=== PATIENT | female | born 1955 | race Caucasian/White ===

== ENCOUNTER → 2016-07-17 | Outpatient (CLI) | payer OTHER ==
--- NOTE | 2016-07-18 07:37 | MR ---
EXAMINATION TYPE: MR cervical spine wo/w con DATE OF EXAM: 07/17/2016 4:24 PM COMPARISON: NONE HISTORY: Neck pain, BUE radic, prev surgery x2 TECHNIQUE: Multiplanar, multisequence images of the cervical spine were acquired utilizing 20 mL intravenous Mul tiHance gadolinium contrast. Diffusion weighted imaging was performed. C2-C3: No evidence for degenerative disc disease. No disc bulge/herniation or protrusion. No Canal stenosis. Foramina are patent bilaterally. C3-C4: No significant disc bulge spinal canal stenosis or neural foraminal stenosis is present. C4-C5: There is a right paracentral endplate spur with moderate anterior thecal sac compression. Cord contact and mild cord deformity is present. No spinal canal stenosis present. Neural foramen are pat ent C5-C6: No significant residual disc is evident. No Canal stenosis. Foramina are patent bilaterally. C6-C7: Degenerative disc changes are present with loss of disc height. No Canal stenosis. Foramina a re patent bilaterally. C7-T1: There is a right paracentral disc herniation with moderate anterior thecal sac compression. Co rd contact is present. No cord deformity is evident. No spinal canal stenosis or neural foraminal clemente nosis is present T1-T2: There is a central disc herniation with moderate anterior thecal sac compression. Cord contact may be present. Minimal cord deformity is not excluded. No AP spinal canal stenosis present. Neural foramen are patent. There is straightening of the cervical spine. Anterior fusion is present C4-C6. This exam is compared to 05/03/2015. The disc bulging at C7-T1 appears diminished from prior. The T1-2 level however appears greater. Comparison is somewhat limited due to no axial images available on th e comparison. IMPRESSION: 1 status post anterior cervical fusion. 2. Appears to be an increase in size central disc herniation T1-T2 without cord contact. Some minimal cord deformity may be present. 2. C7-T1 disc herniation may be somewhat smaller than comparison. Cord contact is present.
== END | disposition home or self-care (01) ==
LOC: RADMRIMAIN 15:37
PROVIDERS: ATTEND Physician Assistant Medical
DX: M50.23 Other cervical disc displacement, cervicothoracic region (principal); Z98.1 Arthrodesis status
CPT/HCPCS: 72156; A9577

== ENCOUNTER → 2017-11-12 | Outpatient (CLI) | payer MEDICAID ==
--- NOTE | 2017-11-13 11:42 | MM ---
Reason for exam: screening (asymptomatic). Last mammogram was performed 2 years and 7 months ago. History: Patient is postmenopausal. Family history of premenopausal breast cancer in maternal aunt at age 38. Physical Findings: A clinical breast exam by your physician is recommended on an annual basis and results should be correlated with mammographic findings. MG 3D Screening Mammo W/Cad Bilateral CC and MLO view(s) were taken. Prior study comparison: April 26, 2015, bilateral MG screening mammo w CAD. April 20, 2014, bilateral MG screening mammo w CAD. There are scattered fibroglandular densities. No suspicious abnormality. No significant changes when compared with prior studies. ASSESSMENT: Negative, BI-RAD 1 RECOMMENDATION: Routine screening mammogram of both breasts in 1 year.
== END | disposition home or self-care (01) ==
LOC: RADMAMWWP 15:39
PROVIDERS: ATTEND Family Medicine
DX: Z12.31 Encounter for screening mammogram for malignant neoplasm of breast (principal)
CPT/HCPCS: 77063; 77067

== ENCOUNTER 2018-07-28 08:07 | Day surgery (SDC) | payer MEDICAID ==
[2018-07-24 11:10] VITALS: BMI 35.5
[~2018-07-28 08:07] MED LIST: HYDROmorphone 0.5 MG/0.5 ML SYRINGE IVP PRN; LACTATED RINGERS 1,000 ML IV SCH; LIDOCAINE 1% 20 ML VIAL (10MG/ML) FOR IV START INTRADERMA PRN; ONDANSETRON 4 MG/2 ML VIAL IVP ONE; ceFAZolin IN SWFI 2 GM/20 ML SYRINGE IVP ONE
[2018-07-28 08:33] VITALS: TEMP 97.7
[2018-07-28 08:36] LABS: Glucose,Whole Blood 108 mg/dL (75-99)
[2018-07-28] MEDS ORDERED: MIDAZOLAM 2 MG/2 ML VIAL ONE (10:22)
[2018-07-28] MEDS ORDERED: PROPOFOL 10 MG/ML 20 ML VIAL IV ONE (10:22)
[2018-07-28] MEDS ORDERED: fentaNYL (PF) 50 MCG/ML 2 ML AMP ONE (10:22)
[2018-07-28] MEDS ORDERED: LIDOCAINE HCL/PF 20 MG/ML ML SQ ONE (10:30)
[2018-07-28] MEDS ORDERED: ROPIVACAINE 5 MG/ML 30 ML VIAL MISCELLANE ONE (10:30)
[2018-07-28 11:14] VITALS: PULSE 54; RESP 16
--- NOTE | 2018-07-28 11:33 | OP ---
OPERATIVE REPORT DATE OF SERVICE: 07/28/2018. PREOPERATIVE DIAGNOSIS: Ganglion cyst and osteophytic spur DIP joint, left middle finger. POSTOPERATIVE DIAGNOSIS: Ganglion cyst and osteophytic spur DIP joint, left middle finger. PROCEDURE: Excision of ganglion cyst and joint debridement, DIP joint, left middle finger. PROCEDURE DESCRIPTION: The patient was taken to the Operative Suite were a digital block anesthetic was performed. The hand was prepped and draped in the usual manner. The finger was exsanguinated and Angela drain was used a tourniquet in the proximal aspect of the finger. A T-shaped incision was made over the DIP joint centered over the ganglion cyst. Skin flaps were gently dissected and care was taken to avoid harm and injury to the extensor tendon. A longitudinal arthrotomy was made along the DIP joint on the side of the ganglion cyst. The cyst was excised along with osteophytic spurs. The wound was irrigated and the skin was closed with 5-0 nylon suture. A soft, bulky dressing was applied, and the patient was taken to the Recovery Room in satisfactory condition. MMODL / IJN: [id number] /
[2018-07-28 11:42] VITALS: BP 116/68
== END 2018-07-28 11:59 | disposition home or self-care (01) ==
LOC: OR 08:07
PROVIDERS: ATTEND Orthopaedic Surgery Hand Surgery
DX: M67.442 Ganglion, left hand (principal); M25.742 Osteophyte, left hand; E11.9 Type 2 diabetes mellitus without complications; E03.9 Hypothyroidism, unspecified; I10 Essential (primary) hypertension; M19.042 Primary osteoarthritis, left hand; Z98.1 Arthrodesis status; Z79.84 Long term (current) use of oral hypoglycemic drugs; Z79.1 Long term (current) use of non-steroidal anti-inflammatories (NSAID); Z79.890 Hormone replacement therapy; Z79.899 Other long term (current) drug therapy
CPT/HCPCS: 26160; 88305; 88311; J2250; J2405; J3010; J2795; J2704; J0690; J2001

== ENCOUNTER → 2018-11-30 | Outpatient (CLI) | payer MEDICAID ==
--- NOTE | 2018-12-01 14:29 | MM ---
Reason for exam: screening (asymptomatic). Last mammogram was performed 1 year and 1 month ago. History: Patient is postmenopausal. Family history of premenopausal breast cancer in maternal aunt at age 38. Physical Findings: A clinical breast exam by your physician is recommended on an annual basis and results should be correlated with mammographic findings. MG 3D Screening Mammo W/Cad Bilateral CC and MLO view(s) were taken. Prior study comparison: November 12, 2017, bilateral MG 3d screening mammo w/cad. April 26, 2015, bilateral MG screening mammo w CAD. There are scattered fibroglandular densities. No significant changes when compared with prior studies. ASSESSMENT: Benign, BI-RAD 2 RECOMMENDATION: Routine screening mammogram of both breasts in 1 year.
== END | disposition home or self-care (01) ==
LOC: RADMAMWWP 15:34
PROVIDERS: ATTEND Family Medicine
DX: Z12.31 Encounter for screening mammogram for malignant neoplasm of breast (principal)
CPT/HCPCS: 77063; 77067

== ENCOUNTER → 2019-07-26 | Outpatient (CLI) | payer OTHER ==
--- NOTE | 2019-07-26 21:09 | MR ---
EXAMINATION TYPE: MR cervical spine wo/w con DATE OF EXAM: 07/26/2019 COMPARISON: Prior exam dated 07/17/2016 HISTORY: pain that goes up on neck, pain running down arm/numbness, accident in 1993 TECHNIQUE: Multiplanar, multisequence images of the cervical spine were acquired utilizing 10 mL intravenous Bowen avist gadolinium contrast. Diffusion weighted imaging was performed. C2-C3: Minimal disc bulge contacts anterior thecal sac, mild deformity. No significant spinal stenosi s or disc herniation. C3-C4: There is minimal posterior disc bulge causing slight anterior mass effect on the thecal sac. N o significant central stenosis or foraminal encroachment. C4-C5: Posterior endplate causes anterior mass effect on the thecal sac, no evident disc material how ever. There is mild spinal stenosis. No significant foraminal encroachment. C5-C6: No evident disc herniation. No significant foraminal encroachment or spinal stenosis. No resid ual disc material. C6-C7: No evidence for degenerative disc disease. No disc bulge/herniation or protrusion. No Canal stenosis. Foramina are patent bilaterally. Prior effusion is present, no evident disc material. Post erior endplate causes mild anterior mass effect on the thecal sac. C7-T1: Posterior disc herniation contacts the anterior cervical cord, mild spinal stenosis. No signif icant foraminal encroachment. Cervical segments are intact. There is normal alignment. Cervical spinal cord is of normal signal. Craniovertebral junction relationships are within normal limits. Patient is status post anterior ce rvical fusion and discectomy at C4-C6, prior fusion present at C6-7. There is artifact due to patient 's anterior metallic hardware. No abnormal enhancement following contrast administration. IMPRESSION: Postop changes, degenerative disc disease are essentially stable compared to prior exam.
== END | disposition home or self-care (01) ==
LOC: RADMRIMAIN 16:41
PROVIDERS: ATTEND Physician Assistant
DX: M50.10 Cervical disc disorder with radiculopathy, unspecified cervical region (principal); Z98.890 Other specified postprocedural states
CPT/HCPCS: 72156; A9585

== ENCOUNTER → 2020-03-22 | Outpatient (CLI) | payer MEDICAID ==
--- NOTE | 2020-03-22 12:08 | XR ---
EXAMINATION TYPE: XR ankle complete RT DATE OF EXAM: 03/22/2020 COMPARISON: NONE HISTORY: Pain FINDINGS: Three views of the ankle demonstrate the ankle mortise to be intact and symmetric. The joint spaces are preserved. The osseous structures are intact. Large calcaneal spurs noted. Hypertrophic change involving the medial malleolus with a well-corticated density inferior to the malleolus. There is a s mall lucency involving the dome of the talus IMPRESSION: 1. Large calcaneal spurs. 2. 5 mm lucency involving the dome of the talus can occasionally be associated with osteochondritis. Correlate with MRI as clinically warranted.
== END | disposition home or self-care (01) ==
LOC: RADXRYALE 11:40
PROVIDERS: ATTEND Physician Assistant
DX: M77.31 Calcaneal spur, right foot (principal)

== ENCOUNTER → 2020-04-28 | Outpatient (CLI) | payer MEDICAID ==
--- NOTE | 2020-04-28 12:02 | MR ---
MR right ankle HISTORY: Pain in right ankle Multiplanar multisequence imaging through the right ankle Correlation to plain film 03/22/2020 There is a plantar calcaneal spur present. Enthesophyte is present at the insertion of the Achilles t endon. There is abnormal thickening of the Achilles tendon distally, abnormal increased intrinsic sig nal is present. Some local fluid signal is present, soft tissues show some edematous change. Some pro bable reactive marrow signal changes are present within the posterior calcaneus at its medial aspect. Subcutaneous edema changes are present in the distal leg. Fluid signal present along the flexor langston ucis longus tendon could represent some tenosynovitis. No evident ligamentous disruption. Peroneal lo ngus and brevis tendons are intact. An osteochondral abnormality present at the medial ankle mortise is signal irregularity, multilocular appearance overall measuring approximately 1 cm in AP dimension by 6 mm in transverse dimension by 8 mm in cephalad to caudal dimension, some cystic change is present, T2 bright, T1 intermediate signal , no definite osteochondral fragment. Some arthropathy changes present tarsometatarsal joint of the fourth digit, there is subchondral geod e formation, marginal spurring. Probable geode also present at the distal aspect of the calcaneus lat erally. Plantar aponeurosis is intact. IMPRESSION: Findings likely represent partial tear of the Achilles tendon as described. Osteochondral injury appe ars remote. Osteoarthritic changes are present as described. Additional findings above.
== END | disposition home or self-care (01) ==
LOC: RADMRIMAIN 09:00
PROVIDERS: ATTEND Physician Assistant
DX: M19.071 Primary osteoarthritis, right ankle and foot (principal)

== ENCOUNTER → 2020-08-04 | Outpatient (CLI) | payer MEDICAID ==
--- NOTE | 2020-08-07 10:42 | MM ---
Reason for exam: screening (asymptomatic). Last mammogram was performed 1 year and 8 months ago. History: Patient is postmenopausal. Family history of premenopausal breast cancer in maternal aunt at age 38. Physical Findings: A clinical breast exam by your physician is recommended on an annual basis and results should be correlated with mammographic findings. MG 3D Screening Mammo W/Cad Bilateral CC and MLO view(s) were taken. Prior study comparison: November 30, 2018, bilateral MG 3d screening mammo w/cad. November 12, 2017, bilateral MG 3d screening mammo w/cad. Focal asymmetry upper outer left breast. This finding is changed when compared with previous exams. ASSESSMENT: Incomplete: need additional imaging evaluation, BI-RAD 0 RECOMMENDATION: Special view mammogram of the left breast. If lesion persists on supplemental views, image directed ultrasound is recommended. [facility] will attempt to contact patient to return for supplemental views and ultrasound if indicated.
== END | disposition home or self-care (01) ==
LOC: RADMAMWWP 09:18
PROVIDERS: ATTEND Family Medicine
DX: Z12.31 Encounter for screening mammogram for malignant neoplasm of breast (principal); R92.8 Other abnormal and inconclusive findings on diagnostic imaging of breast
CPT/HCPCS: 77063; 77067

== ENCOUNTER → 2020-08-09 | Outpatient (CLI) | payer MEDICAID ==
--- NOTE | 2020-08-09 11:15 | US ---
EXAMINATION TYPE: US kidneys/renal and bladder DATE OF EXAM: 08/09/2020 COMPARISON: NONE CLINICAL HISTORY: 64-year-old female M54.5, R10.2, R31.29, Low back pain, pelvic/perineum. Pain and p ressure TECHNIQUE: Multiple sonographic images of the kidneys and bladder are obtained. FINDINGS: EXAM MEASUREMENTS: Right Kidney: 10.5 x 5.0 x 3.4 cm Left Kidney: 10.9 x 4.9 x 4.2 cm No hydronephrosis on either side. Bladder: No gross abnormality. Bilateral Jets seen: No IMPRESSION: No hydronephrosis.
== END | disposition home or self-care (01) ==
LOC: RADUSWWP 07:28
PROVIDERS: ATTEND Family Medicine
DX: R31.29 Other microscopic hematuria (principal); R10.2 Pelvic and perineal pain; M54.5 Low back pain
CPT/HCPCS: 76770

== ENCOUNTER → 2020-08-09 | Outpatient (CLI) | payer MEDICAID ==
--- NOTE | 2020-08-09 08:51 | MM ---
Reason for exam: additional evaluation requested from abnormal screening. Last mammogram was performed less than 1 month ago. History: Patient is postmenopausal. Family history of premenopausal breast cancer in maternal aunt at age 38. Physical Findings: Nurse did not find any significant physical abnormalities on exam. MG 3D Work Up W/Cad LT Spot compression CC, spot compression MLO, and LM view(s) were taken of the left breast. Prior study comparison: August 04, 2020, bilateral MG 3d screening mammo w/cad. November 30, 2018, bilateral MG 3d screening mammo w/cad. There are scattered fibroglandular densities. The superior central asymmetric density on MLO disperses on additional views. No significant new findings when compared with previous films. These results were verbally communicated with the patient and result sheet given to the patient on 08/09/20. ASSESSMENT: Negative, BI-RAD 1 RECOMMENDATION: Return to routine screening mammogram schedule for both breasts.
== END | disposition home or self-care (01) ==
LOC: RADMAMWWP 07:26
PROVIDERS: ATTEND Family Medicine
DX: R92.8 Other abnormal and inconclusive findings on diagnostic imaging of breast (principal)
CPT/HCPCS: 77061; 77065

== ENCOUNTER → 2021-05-02 | Outpatient (CLI) | payer MEDICAID ==
[2021-05-02 16:30] LABS: Basophils # (A) 0.06 X 10*3/uL (0.00-0.10); Basophils % (A) 0.8 %; HCT 36.1 % (37.2-46.3); HGB 11.1 g/dL (12.0-15.0); Lymphocytes # (A) 1.82 X 10*3/uL (0.90-5.00); MCH 27.1 pg (27.0-32.0); MCHC 30.7 g/dL (32.0-37.0); Monocytes # (A) 0.67 X 10*3/uL (0.20-1.00); Monocytes % (A) 8.9 %; Neutrophils # (A) 4.68 X 10*3/uL (1.80-7.70); Neutrophils % (A) 61.8 %; Platelet Count 346 X 10*3/uL (140-440); WBC 7.57 X 10*3/uL (4.50-10.00)
[2021-05-02 18:46] LABS: African American GFR (CKD) 61.4 (60.0-200.0); Albumin 4.2 g/dL (3.8-4.9); Albumin/Globulin Ratio 1.4 (1.60-3.17); Anion Gap 14.2 mmol/L (4.00-12.00); BUN/Creat Ratio 23.27 Ratio (12.00-20.00); Blood Urea Nitrogen 25.6 mg/dL (9.0-27.0); Calcium 9.8 mg/dL (8.7-10.3); Carbon Dioxide 26.8 mmol/L (21.6-31.8); Chol/HDL Ratio 4.14 Ratio; HDL Cholesterol 41.8 mg/dL (40.00-60.00); LDL Cholesterol,Calculated 105.2 mg/dL (0.0-131.0); Potassium 4.3 mmol/L (3.5-5.5); T4, Free (Free Thyroxine) 1.37 ng/dL (0.800-1.800); Total Bilirubin 0.4 mg/dL (0.30-1.20); Total Protein 7.2 g/dL (6.2-8.2)
== END | disposition home or self-care (01) ==
LOC: LABWHC1 10:25
PROVIDERS: ATTEND Physician Assistant
DX: E03.9 Hypothyroidism, unspecified (principal); I10 Essential (primary) hypertension; E78.2 Mixed hyperlipidemia; E11.9 Type 2 diabetes mellitus without complications; E55.9 Vitamin D deficiency, unspecified
CPT/HCPCS: 36415; 80053; 80061; 82306; 84439; 84443; 85025

== ENCOUNTER → 2021-06-05 | Outpatient (CLI) | payer MEDICAID, OTHER | END | disposition home or self-care (01) | LOC: LABWHC1 13:17 | PROVIDERS: ATTEND Emergency Medicine | DX: Z20.822 Contact with and (suspected) exposure to COVID-19 (principal) | CPT/HCPCS: 87635 ==

== ENCOUNTER → 2021-06-06 | Outpatient (CLI) | payer MEDICAID, OTHER | END | disposition home or self-care (01) | LOC: LABMAIN 13:47 | PROVIDERS: ATTEND Emergency Medicine | DX: Z20.822 Contact with and (suspected) exposure to COVID-19 (principal) | CPT/HCPCS: 87635 ==

== ENCOUNTER → 2021-06-20 | Outpatient (CLI) | payer MEDICAID ==
--- NOTE | 2021-06-20 19:00 | US ---
EXAMINATION TYPE: US abdomen limited DATE OF EXAM: 06/20/2021 COMPARISON: None CLINICAL HISTORY: 65-year-old female R11.0 Nausea RUQ pain R10.11. Patient states no prior abdomen hanley rgeries. Patient states being NPO. EXAM MEASUREMENTS: Liver Length: 16.2 cm CBD: 0.4 cm Right Kidney: 11.1 x 4.0 x 4.0 cm Rod Piler notes:Limited exam due to patient body habitus Pancreas: Shadowing from bowel gas obscures the pancreatic head and tail. Visualized body shows no g ross abnormal body. Liver: Markedly attenuating. This secondary limits assessment for focal lesions. Gallbladder: Unable to visualized Evidence for sonographic Lobo's sign: neg CBD: wnl Right Kidney: No hydronephrosis. IMPRESSION: 1. Attenuating liver may reflect underlying hepatic steatosis. The degree of attenuation limits asses sment for focal lesions. 2. Unable to adequately visualize the gallbladder. 3. No biliary ductal dilatation.
== END | disposition home or self-care (01) ==
LOC: RADUSWWP 12:19
PROVIDERS: ATTEND Family Medicine
DX: R11.0 Nausea (principal); R10.11 Right upper quadrant pain
CPT/HCPCS: 76705

== ENCOUNTER → 2021-06-29 | Outpatient (CLI) | payer MEDICAID ==
--- NOTE | 2021-06-29 11:36 | NM ---
Nuclear medicine hepatobiliary scan. HISTORY: Pain. DOSAGE: The patient see and 4.6 mCi of Technetium 99m Choletec. FINDINGS: There is normal hepatic extraction. Heterogeneous hepatic extraction and upper portion of l iver. Finding nonspecific. Recent ultrasound demonstrated attenuating liver limiting assessment for f ocal lesions. Follow-up CT the gallbladder is not seen and 3 hours biliary to bowel clearance is note d 30 minutes. IMPRESSION: 1. Correlate for cholecystitis. 2. Heterogeneous appearance of the hepatic extraction. This could be correlated with CT of the abdome n for further evaluation.
== END | disposition home or self-care (01) ==
LOC: RADNMMAIN 06:57
PROVIDERS: ATTEND Family Medicine
DX: R93.2 Abnormal findings on diagnostic imaging of liver and biliary tract (principal)
CPT/HCPCS: 78226; A9537

== ENCOUNTER 2021-08-21 08:19 | Day surgery (SDC) | payer MEDICAID ==
[2021-08-15 15:21] VITALS: BMI 40.3
[~2021-08-21 08:19] MED LIST changes: -HYDROmorphone 0.5 MG/0.5 ML SYRINGE IVP PRN; +LIDOCAINE 1% (10MG/ML) FOR IV START INTRADERMA PRN; -LIDOCAINE 1% 20 ML VIAL (10MG/ML) FOR IV START INTRADERMA PRN; -ONDANSETRON 4 MG/2 ML VIAL IVP ONE; -ceFAZolin IN SWFI 2 GM/20 ML SYRINGE IVP ONE
[2021-08-21 08:50] VITALS: TEMP 97
[2021-08-21 08:57] LABS: Glucose,Whole Blood 92 mg/dL (75-99)
[2021-08-21] MEDS ORDERED: PROPOFOL 10 MG/ML 20 ML VIAL IV ONE (09:29)
--- NOTE | 2021-08-21 09:29 | P.GSHP ---
History of Present Illness H&P Date: 08/21/21 Chief Complaint: Colon cancer screening, history of polyps Patient here today for colonoscopy. Last colonoscopy 5-6 years ago. Patient with history of adenomas. No bowel complaints currently. Had recent cholecystectomy. Past Medical History Past Medical History: Diabetes Mellitus, GERD/Reflux, Hypertension, Thyroid Disorder History of Any Multi-Drug Resistant Organisms: None Reported Past Surgical History: Cholecystectomy, Orthopedic Surgery Additional Past Surgical History / Comment(s): cervical fusion. chest tube from pneumonthorax. RT knee scope. COLONOSCOPY Past Anesthesia/Blood Transfusion Reactions: No Reported Reaction Smoking Status: Never smoker - Past Family History Mother Family Medical History: No Reported History Father Family Medical History: COPD Additional Family Medical History / Comment(s): cabbage Medications and Allergies Home Medications Medication Instructions Recorded Confirmed Type Levothyroxine Sodium [Synthroid] 50 mcg PO DAILY 05/17/15 08/21/21 History Metoprolol Succinate [Toprol XL] 200 mg PO DAILY 05/17/15 08/21/21 History hydroCHLOROthiazide [Hydrodiuril] 25 mg PO DAILY 05/17/15 08/21/21 History Aspirin 81 mg PO DAILY 07/24/18 08/21/21 History Pioglitazone HCl [Actos] 30 mg PO DAILY 07/24/18 08/21/21 History Cholecalciferol [Vitamin D3 (25 50 mcg PO DAILY 07/12/21 08/21/21 History Mcg = 1000 Iu)] Ibuprofen [Motrin] 800 mg PO Q8H PRN 07/12/21 08/21/21 History metFORMIN HCL [Glucophage] 1,000 mg PO BID 07/12/21 08/21/21 History Allergies Allergy/AdvReac Type Severity Reaction Status Date / Time bandaid AdvReac Rash/Hives Uncoded 08/21/21 08:36 Surgical - Exam Vital Signs Temp Pulse Resp BP Pulse Ox 97.0 F L 61 18 166/70 100 08/21/21 08:46 08/21/21 08:46 08/21/21 08:46 08/21/21 08:46 08/21/21 08:46 Physical exam: General: Well-developed, well-nourished HEENT: Normocephalic, sclerae nonicteric Abdomen: Nontender, nondistended Extremities: No edema Neuro: Alert and oriented Assessment and Plan (1) Colon cancer screening Narrative/Plan: Will proceed with colonoscopy at this time. Current Visit: No Status: Acute Code(s): Z12.11 - ENCOUNTER FOR SCREENING FOR MALIGNANT NEOPLASM OF COLON SNOMED Code(s): 639353275
--- NOTE | 2021-08-21 09:42 | P.PCN ---
Date of Procedure: 08/21/21 Procedure(s) Performed: PREOPERATIVE DIAGNOSIS: Colon cancer screening, history of polyps POSTOPERATIVE DIAGNOSIS: Normal exam PROCEDURE: Colonoscopy ANESTHESIA: MAC SURGEON: Jacinto Lucero M.D. SPECIMENS: None ENDOSCOPIC PROCEDURE: The patient was placed on the endoscopy table in the left decubitus position. The Olympus colonoscope was inserted into the anus and passed under direct visualization to the base of the cecum. The appendiceal orifice was visualized. From that point the scope was slowly withdrawn inspecting all surfaces carefully. There were no neoplastic inflammatory or polypoid lesions throughout the cecum, ascending, transverse, descending, sigmoid and rectum. There was no visible diverticulosis noted. Digital rectal examination was normal. The patient was taken to the recovery room in stable condition per anesthesia guidelines. RECOMMENDATIONS: Resume diet. Follow-up colonoscopy 5-7 years because of the patient's previous history of colon polyps.
[2021-08-21 09:46] VITALS: RESP 16
[2021-08-21 10:11] VITALS: BP 128/74; PULSE 52
== END 2021-08-21 10:33 | disposition home or self-care (01) ==
LOC: ORWHC2ENDO 08:19
PROVIDERS: ATTEND Surgery
DX: Z12.11 Encounter for screening for malignant neoplasm of colon (principal); Z86.010 Personal history of colon polyps; D50.9 Iron deficiency anemia, unspecified; E55.9 Vitamin D deficiency, unspecified; E66.9 Obesity, unspecified; Z68.41 Body mass index [BMI] 40.0-44.9, adult; E11.9 Type 2 diabetes mellitus without complications; E78.5 Hyperlipidemia, unspecified; E03.9 Hypothyroidism, unspecified; Z98.890 Other specified postprocedural states; Z90.49 Acquired absence of other specified parts of digestive tract; K21.9 Gastro-esophageal reflux disease without esophagitis; I10 Essential (primary) hypertension; Z98.1 Arthrodesis status; Z83.6 Family history of other diseases of the respiratory system; Z82.49 Family history of ischemic heart disease and other diseases of the circulatory system; Z79.84 Long term (current) use of oral hypoglycemic drugs; Z79.890 Hormone replacement therapy; Z79.899 Other long term (current) drug therapy; Z91.09 Other allergy status, other than to drugs and biological substances
CPT/HCPCS: J2704; G0105; 45378

== ENCOUNTER → 2021-09-14 | Outpatient (CLI) | payer MEDICAID ==
--- NOTE | 2021-09-18 15:20 | MM ---
Reason for exam: screening (asymptomatic). Last mammogram was performed 1 year and 1 month ago. History: Patient is postmenopausal. Family history of premenopausal breast cancer in maternal aunt at age 38. Physical Findings: A clinical breast exam by your physician is recommended on an annual basis and results should be correlated with mammographic findings. MG 3D Screening Mammo W/Cad Bilateral CC and MLO view(s) were taken. Prior study comparison: August 09, 2020, left breast MG 3d work up w/cad LT. August 04, 2020, bilateral MG 3d screening mammo w/cad. There are scattered fibroglandular densities. There is no discrete abnormality. ASSESSMENT: Negative, BI-RAD 1 RECOMMENDATION: Routine screening mammogram of both breasts in 1 year.
== END | disposition home or self-care (01) ==
LOC: RADMAMWWP 08:17
PROVIDERS: ATTEND Family Medicine
DX: Z12.31 Encounter for screening mammogram for malignant neoplasm of breast (principal); Z80.3 Family history of malignant neoplasm of breast; Z78.0 Asymptomatic menopausal state
CPT/HCPCS: 77063; 77067

== ENCOUNTER → 2022-07-25 | Outpatient (CLI) | payer MEDICARE ==
[2022-07-25 13:15] VITALS: BP 139/54; PULSE 56; RESP 18; TEMP 97.3
--- NOTE | 2022-07-25 14:59 | P.PAINPG ---
PQRS Measure Charge Sheet Comment: HISTORY OF PRESENT ILLNESS: 66 yr old female as a referral from Dr Wade presents today w severe and chronic LBP secondary to DDD, anterolisthesis, stenosis, spondylosis and facet arthropathy without myelopathy for evaluation. Pt states pain level is provoked at 8/10 in intensity, constant, localized in the L lower lumbar spine, tight in character w shooting pain towards the L buttocks. Pain is provoked by standing from a sitting position. Pain is alleviated by PT x 2 sessions without relief, massage therapy integrated w PT, acupuncture x 2 sessions, heat, ice, meds (Ibu), sitting, repositioning and rest. PMH: DM II, GERD, HTN, Hypothyroidism, OA PSH: Cholecystectomy, Cervical Fusion, Chest tube/ Pneumothorax, R Knee Arthroscopy, Colonoscopy (2021) SH: Negative x3 FH: Mo- No Reported History. Fa- COPD/CABG All: See list Meds: See list REVIEW OF ORGAN SYSTEMS: CONSTITUTIONAL: No fevers or chills. No recent weight loss. NEUROLOGICAL: + numbness and tingling along the distal extremities. No seizure disorders or headaches. MUSCULOSKELETAL: + pain PSYCHIATRIC: Denies current depression or suicidal thoughts. Physical Examinations : Constitutional : Cooperative , not in acute distress . Neurologic : Cranial nerve II to XII intact. No focal neurological deficits. Psychiatric : alert & oriented x 3. Matching mood & appropriate affect. Judgment & insight intact. Musculoskeletal : Cervical Spine Motor strength in the deltoid and biceps: Normal right side. Normal Left side Motor strength biceps and the wrist extensors: Normal right side . Normal left side Motor strength in the triceps muscle: Normal right side. Normal left side Deep tendon reflexes: Normal at the biceps. Normal at Brachioradialis. Normal at triceps Vertebral body tenderness to deep palpation over Cervical facet loading test: positive bilaterally Spurling test: positive bilaterally Neck distraction test: positive bilaterally Tomasa sign: positive bilaterally Lumbar spine Motor strength lower extremities ,thigh and legs 5/5 Right side , 5/5 Left side Deep tendon reflexes : Normal Knee Jerk. Normal Ankle Jerk Vertebral body tenderness over L4 Lumbar facet Loading Test: positive Right / positive Left Range of motion of the lumbar spine Flexion 30 degrees, extension 10 degrees Straight Leg Raise test: Left/ Right positive at degree Whit test: positive right / positive left. Severe tenderness over the Sacroiliac joint on the Right / Left sides Gaenslen test: positive bilaterally Seated flexion test: positive bilaterally. Sacral spine : Severe tenderness over the Sacroiliac joint: right side / left side Range of motion: Flexion of the lumbar spine <60 degrees Range of motion: Extension of the lumbar spine <20 degrees Gaenslen's Test positive August's Test positive Whit test: positive right side / left side Thigh Thrust Test Sacral Thrust Test Imaging: MRI noncontrast of the lumbar spine from 04/26/22 reviewed Assessment/ Plan : Lumbar DDD, lumbar anterolisthesis Recommendation of EVI L4-L5. May need a series of injections, up to 3 within a 6 mo period, for optimal pain relief. Risks, benefits of procedure discussed and patient verbalized understanding. Admits to aspirin or anti- coagulant use or medical history of diabetes. Protocol for discontinuation/ continuation of medications augusta procedure discussed. All questions answered. I have spent greater than 30 minutes on patient care today. Dr Peraza was available by phone for the evaluation of this patient. The time was used to review the medical records including relevant urine studies and Prescription history (MAPs), review of the available imaging, evaluation and examination of the patient, coordination of care with the medical staff and if applicable referring physicians, as well as creation of the medical record - Pain Location Left Lower Back Non-Pharmacological Interventions: Heat, Home Exercise, Ice, Inactivity, Physical Therapy, Position/Reposition, Sitting, Stretching Pharmacological Interventions: PRN Medication, Topical Medication Home Medications: Ambulatory Orders Levothyroxine Sodium [Synthroid] 50 mcg PO DAILY 05/17/15 Metoprolol Succinate [Toprol XL] 200 mg PO DAILY 05/17/15 hydroCHLOROthiazide [Hydrodiuril] 25 mg PO DAILY 05/17/15 Aspirin 81 mg PO DAILY 07/24/18 Pioglitazone HCl [Actos] 30 mg PO DAILY 07/24/18 Cholecalciferol [Vitamin D3 (25 Mcg = 1000 Iu)] 50 mcg PO DAILY 07/12/21 Ibuprofen [Motrin] 800 mg PO Q8H PRN 07/12/21 metFORMIN HCL [Glucophage] 1,000 mg PO BID 07/12/21 Controlled Substance Measures - Controlled Substance Measures Is patient prescribed a controlled substance at discharge?: No
== END ==
LOC: PNWHC3 12:33
PROVIDERS: ATTEND Specialist
DX: M51.36 Other intervertebral disc degeneration, lumbar region (principal); M43.16 Spondylolisthesis, lumbar region; Z79.899 Other long term (current) drug therapy; Z79.82 Long term (current) use of aspirin; Z79.84 Long term (current) use of oral hypoglycemic drugs; E11.9 Type 2 diabetes mellitus without complications; K21.9 Gastro-esophageal reflux disease without esophagitis; I10 Essential (primary) hypertension; E03.9 Hypothyroidism, unspecified; M19.90 Unspecified osteoarthritis, unspecified site; Z88.6 Allergy status to analgesic agent
CPT/HCPCS: 99211

== ENCOUNTER 2022-10-29 09:19 | Day surgery (SDC) | payer MEDICARE ==
[~2022-10-29 09:19] MED LIST changes: +IOPAMIDOL M200 10 ML VIAL ONE; -LIDOCAINE 1% (10MG/ML) FOR IV START INTRADERMA PRN; +methylPREDNISolone ACETATE 40 MG/ML 1 ML VIAL ONE
[2022-10-29 09:36] VITALS: TEMP 97
--- NOTE | 2022-10-29 09:56 | P.PCN ---
Date of Procedure: 10/29/22 Operative Findings: PREOPERATIVE DIAGNOSIS: lumbar radiculopathy POSTOPERATIVE DIAGNOSIS: Lumbar radiculopathy PROCEDURE 1. Lumbar epidural steroid injection under fluoroscopic guidance at the L5-S1 level. 2. Lumbar epidurogram. Imaging: Fluoroscopy was used, images where saved to the medical record ANESTHESIA: Local only EBL: Minimal PROCEDURE INDICATION: The patient with low back pain and radiculitis symptoms unresponsive to conservative treatment. Fluoroscopy was used to optimize visualization of the needle placement and to maximize safety. PROCEDURE DESCRIPTION / TECHNIQUE: The patient was seen and identified in the preoperative area. Risks, benefits, complications including but not limited to infections, bleeding, allergic reaction to medications, nerve damage and incomplete pain relief, as well as alternatives to the procedure were discussed with the patient. The patient agreed to proceed with the procedure and signed the consent. IV was started if indicated above, and vital signs were stable. Patient was taken to the OR and time out was completed. The patient was placed in the prone position on procedure table and a pillow was placed under the abdomen to reduce lumbar lordosis. The lumbosacral area was prepped and draped in the usual sterile fashion. Vitals were closely monitored during the procedure. Using anterior-posterior fluoroscopy, the L5-S1 interlaminar space was identified and the skin over this site was marked and then infiltrated with 1% lidocaine subcutaneously. Subsequently, a 20-gauge Tuohy epidural needle was inserted and advanced toward the epidural space using the Loss of resistance technique and guided by AP and lateral fluoroscopy. The correct needle position in the epidural space was verified with the injection of 1 mL of Omnipaque 180 contrast to observe an acceptable epidurogram, after negative aspiration for blood and CSF and in the absence of paresthesias. Again after negative aspiration, a 3 ml mixture containing 40mg of depomedrol and 2 ml of preservative free Normal Saline was injected and a washout of epidurogram was seen. Needle was withdrawn intact, skin was cleansed, and bandages were applied. COMPLICATIONS: None DISPOSITION / PLANS: The patient was placed in a supine position and transferred to the recovery area in a stable condition for observation. There was no evidence of lower extremity motor or sensory deficit after the procedure. Patient was discharged from the recovery room after meeting discharge criteria. Home discharge instructions were given to the patient by the staff. The patient was reexamined prior to discharge. The patient will follow up as directed.
[2022-10-29 10:13] VITALS: RESP 20
--- NOTE | 2022-10-29 10:21 | FL ---
EXAMINATION TYPE: FL guided pain mgmt statistic DATE OF EXAM: 10/29/2022 HISTORY: Fluoroscopy time Total dose area product (DAP) in mGy*cm? (or similar): 0.78595 IMPRESSION: 1. Fluoroscopy time.
[2022-10-29 10:24] VITALS: BP 150/80; PULSE 72
== END 2022-10-29 10:24 | disposition home or self-care (01) ==
LOC: ORPAIN 09:19
PROVIDERS: ATTEND Hospitalist
DX: M54.16 Radiculopathy, lumbar region (principal)
CPT/HCPCS: 62323; J1030; Q9966

== ENCOUNTER → 2022-12-02 | Outpatient (CLI) | payer MEDICARE ==
[2022-12-02 14:51] VITALS: BP 148/78; PULSE 56; RESP 18; TEMP 98
--- NOTE | 2022-12-04 10:30 | P.PAINPG ---
PQRS Measure Charge Sheet Comment: A 66 yr old female with a history of severe and chronic LBP secondary to lumbar DDD and spondylosis with facet arthropathy without myelopathy presents today for evaluation s/p EVI L4-L5 #1. Pt states she experienced 20% pain relief x 4 wks s/p procedure. Pain level is provoked at 8 /10 in intensity, constant, localized in the lumbar spine, pressure- like in character w shooting towards the buttocks. Pain is provoked by walking/ standing for periods of 20 min or more. Pain is alleviated with sitting, heat, PT x 4 wks which ended in May 2022, medications, repositioning and rest. Interventional pain procedures completed include EVI L4-L5 x1 Patient is currently on Ibu Patient denies any side effects of the medication(s), denies excessive drowsiness or sleepiness, denies suicidal ideation and reports that the current pain medication is helping to control the pain and improve activities of daily living. Patient denies any motor or sensory deficits. Patient denies any fever or night sweats, denies any change in the bowel movements or urination. Physical Examination: -Constitutional: Cooperative. Not in acute distress . - Neurologic: Cranial nerve II to XII intact. No focal neurological deficits. - Psychatric: Alert & oriented x 3. Matching mood & appropriate affect. Judgment and insight intact. - Musculoskeletal: Cervical spine: Muscle bulk/ tone/ strength in the bilateral upper extremities normal Vertebral body tenderness to palpation over Spurling test positive Distraction test positive Facet loading test positive TTP Thoracic spine Muscle bulk / tone/ strength in the bilateral paraspinal muscles normal Vertebral body tender to palpation over Facet loading test positive TTP Lumbar spine: Motor bulk/ tone/ strength lower extremities , thigh and legs : 5/5 Deep tendon reflexes : Normal Knee Jerk. Normal Ankle Jerk . Vertebral body tenderness to palpation over Lee Test positive Lumbar Facet Loading Test positive over BL L4-L5, L5-S1 Straight Leg Raise: positive at 30 degrees right side/ left side Gaenslen's Test positive Sacral spine : Severe tenderness over the Sacroiliac joint: right side / left side Range of motion: Flexion of the lumbar spine <60 degrees Range of motion: Extension of the lumbar spine <20 degrees Gaenslen's Test positive right side / left side Whit test: positive right side / left side Thigh Thrust Test positive right side / left side Sacral Thrust Test positive right side / left side Assessment and plan: Chronic LBP secondary to lumbar DDD, spondylosis with facet arthropathy without myelopathy Recommendation of BL facet block of the medial branches L4-L5, L5-S1 #1. May need a series of injections, up until RFA, for optimal pain relief. Risks, benefits of procedure discussed and pt verbalized understanding. Admits to anticoagulant use or medical history of diabetes. Protocol for discontinuation/ continuation of medications augusta procedure discussed. Minimal anesthesia provided, if clinically indicated, consisting of Versed and Fentanyl. All questions answered. I have spent less than 30 minutes on patient care today. Dr Peraza was available by phone for the evaluation of this patient. The time was used to review the medical records including relevant urine studies and Prescription history (MAPs), review of the available imaging, evaluation and examination of the patient, coordination of care with the medical staff and if applicable referring physicians, as well as creation of the medical record PQRS Narrative: Hx Alcohol Use (MH) No Home Medications: Ambulatory Orders Levothyroxine Sodium [Synthroid] 50 mcg PO QAM 05/17/15 Metoprolol Succinate [Toprol XL] 200 mg PO QAM 05/17/15 hydroCHLOROthiazide [Hydrodiuril] 25 mg PO QAM 05/17/15 Pioglitazone HCl [Actos] 30 mg PO QAM 07/24/18 Cholecalciferol [Vitamin D3 (25 Mcg = 1000 Iu)] 50 mcg PO QAM 07/12/21 Ibuprofen [Motrin] 800 mg PO Q8H PRN 07/12/21 metFORMIN HCL [Glucophage] 1,000 mg PO BID 07/12/21 Controlled Substance Measures - Controlled Substance Measures Is patient prescribed a controlled substance at discharge?: No
== END ==
LOC: PNWHC3 14:13
PROVIDERS: ATTEND Specialist
DX: M51.37 Other intervertebral disc degeneration, lumbosacral region (principal); G89.29 Other chronic pain; M47.817 Spondylosis without myelopathy or radiculopathy, lumbosacral region; Z88.8 Allergy status to other drugs, medicaments and biological substances
CPT/HCPCS: 99211

== ENCOUNTER → 2023-03-12 | Outpatient (CLI) | payer MEDICARE ==
--- NOTE | 2023-03-12 08:16 | US ---
EXAMINATION TYPE: US kidneys/renal and bladder DATE OF EXAM: 03/12/2023 COMPARISON: 06/20/2021 CLINICAL INDICATION: Female, 67 years old with history of N18.32 CHRONIC KIDNEY DISEASE, STAGE 3BE11. 22; ckd EXAM MEASUREMENTS: Right Kidney: 10.3 x 4.4 x 4.2 cm Left Kidney: 10.8 x 4.9 x 3.8 cm Right Kidney: No hydronephrosis or masses seen Left Kidney: No hydronephrosis or masses seen Bladder: Not fully distended. Bilateral Jets seen: no IMPRESSION: 1. Unremarkable renal ultrasound
== END | disposition home or self-care (01) ==
LOC: RADUSWWP 07:35
PROVIDERS: ATTEND Family Medicine
DX: N18.32 Chronic kidney disease, stage 3b (principal); E11.22 Type 2 diabetes mellitus with diabetic chronic kidney disease
CPT/HCPCS: 76770

== ENCOUNTER → 2023-10-17 | Outpatient (CLI) | payer MEDICARE ==
--- NOTE | 2023-10-20 09:26 | MM ---
Reason for Exam: Screening (asymptomatic). Last mammogram was performed 2 year(s) and 1 month(s) ago. Patient History: Menarche at age 14. First Full-Term at age 24. Postmenopausal. Maternal aunt had breast cancer, age 38. Risk Values: Lou 5 year model risk: 1.5%. NCI Lifetime model risk: 5.4%. Prior Study Comparison: 08/04/2020 Bilateral Screening Mammogram, [facility]. 08/09/2020 Left Diagnostic Mammogram, [facility]. 09/14/2021 Bilateral Screening Mammogram, [facility]. Tissue Density: The breasts are heterogeneously dense, which may obscure small masses. Findings: Analyzed By CAD. There is no suspicious group of microcalcifications or new suspicious mass in either breast. Overall Assessment: Negative, BI-RAD 1 Management: Screening Mammogram of both breasts in 1 year. . Patient should continue monthly self-breast exams. A clinical breast exam by your physician is recommended on an annual basis. This exam should not preclude additional follow-up of suspicious palpable abnormalities. Note on Lou scores and lifetime risk: 1. A Lou score greater than 3% is considered moderate risk. If this is the case, consider specialist referral to assess eligibility for a risk reducing agent. 2. If overall lifetime risk for the development of breast cancer is 20% or higher, the patient may qualify for future screening with alternating mammogram and breast MRI. Electronically signed and approved by: Jarod Butler M.D. Radiologis
== END | disposition home or self-care (01) ==
LOC: RADMAMWWP 08:57
PROVIDERS: ATTEND Family Medicine
DX: Z12.31 Encounter for screening mammogram for malignant neoplasm of breast (principal); Z78.0 Asymptomatic menopausal state; Z80.3 Family history of malignant neoplasm of breast
CPT/HCPCS: 77063; 77067

== ENCOUNTER → 2024-10-19 | Outpatient (CLI) | payer MEDICARE ==
--- NOTE | 2024-10-20 14:54 | MM ---
Reason for Exam: Screening (asymptomatic). Last screening mammogram was performed 12 month(s) ago. Patient History: Menarche at age 14. First Full-Term at age 24. Postmenopausal. Maternal aunt had breast cancer, age 38. Risk Values: Lou 5 year model risk: 1.5%. NCI Lifetime model risk: 5.2%. Prior Study Comparison: 08/09/2020 Left Diagnostic Mammogram, [facility]. 09/14/2021 Bilateral Screening Mammogram, [facility]. 10/17/2023 Bilateral MG 3D screening mammo w/cad, [facility]. Tissue Density: The breasts are heterogeneously dense, which may obscure small masses. Findings: Analyzed By CAD. There is no suspicious group of microcalcifications or new suspicious mass in either breast. Overall Assessment: Negative, BI-RAD 1 Management: Screening Mammogram of both breasts in 1 year. . Patient should continue monthly self-breast exams. A clinical breast exam by your physician is recommended on an annual basis. This exam should not preclude additional follow-up of suspicious palpable abnormalities. Note on Lou scores and lifetime risk: 1. A Lou score greater than 3% is considered moderate risk. If this is the case, consider specialist referral to assess eligibility for a risk reducing agent. 2. If overall lifetime risk for the development of breast cancer is 20% or higher, the patient may qualify for future screening with alternating mammogram and breast MRI. [facility], , 10/19/2024 1:39 PM. Electronically signed and approved by: Jarod Butler M.D. Radiologis
== END | disposition home or self-care (01) ==
LOC: RADMAMWWP 13:28
PROVIDERS: ATTEND Family Medicine
DX: Z12.31 Encounter for screening mammogram for malignant neoplasm of breast (principal); R92.333 Mammographic heterogeneous density, bilateral breasts; Z78.0 Asymptomatic menopausal state; Z80.3 Family history of malignant neoplasm of breast
CPT/HCPCS: 77063; 77067